=== PATIENT | female | born 1975 | race Caucasian/White ===

== ENCOUNTER 2017-12-06 13:19 | Emergency (ER) | payer SELFPAY ==
[2017-12-06] MEDS ORDERED: predniSONE 20 MG TAB ONE (13:56)
[2017-12-06] MEDS ORDERED: AMOXicillin 250 MG CAP ONE (14:10)
== END 2017-12-06 14:19 | disposition home or self-care (01) ==
LOC: BURERS 13:19
DX: J45.901 Unspecified asthma with (acute) exacerbation (principal); J01.90 Acute sinusitis, unspecified; F17.210 Nicotine dependence, cigarettes, uncomplicated
CPT/HCPCS: 94760; J7506; J7620